=== PATIENT | female | born 2000 | race Hispanic/Latino ===

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

== ENCOUNTER 2024-10-07 19:08 | Emergency (ER) | payer SELFPAY | END 2024-10-07 19:17 | disposition home or self-care (01) | LOC: ERS 19:08 | DX: H66.92 Otitis media, unspecified, left ear (principal) | CPT/HCPCS: 99282 ==